=== PATIENT | female | born 1975 | race Hispanic/Latino ===

== ENCOUNTER 2019-02-11 08:28 | Day surgery (SDC) | payer OTHER ==
--- NOTE | 2019-02-11 00:25 | Consultation ---
HISTORY OF PRESENT ILLNESS: The patient is a 43-year-old woman who has a severe left flank pain. She has a 6 mm mid ureteral stone. All the options were given. She was given Flomax. Her pain is controlled. PAST MEDICAL HISTORY: No history of previous stones, which passed. MEDICATIONS: None regularly. ALLERGIES: Negative. SOCIAL HISTORY: Negative. REVIEW OF SYSTEMS: Pain is resolved. PHYSICAL EXAMINATION: GENERAL: She is awake, alert. She is in no distress. CHEST: Clear. CARDIOVASCULAR: Regular rhythm. ABDOMEN: Soft, nondistended, mild left flank pain. IMPRESSION: Left mid ureteral stone for cystoscopy stenting, possible ureteroscopy, retrograde. We wanted to try to have this passed, but she has planned a trip the entire year ago, leave on Friday. The other option if she can go and take the chance or have the stent or cancel the trip. She will see what happens over the next 24 hours. Otherwise, we will get a stent. JOB# [id number] SAGAR/EMILY
--- NOTE | 2019-02-11 09:31 | Anesthesia Day of Surgery ---
Anesthesia Day of Surgery - Day of Surgery Patient Examined: Yes Patient H&P Reviewed: Yes Patient is NPO: Yes
--- NOTE | 2019-02-11 09:31 | Anesthesia Consultation ---
Anesthesia Consult and Med Hx Date of service: 02/11/19 - Airway Anesthetic Teeth Evaluation: Good ROM Head & Neck: Adequate Mental/Hyoid Distance: Adequate Mallampati Class: Class II Intubation Access Assessment: Good - Pulmonary Exam CTA: Yes - Cardiac Exam Cardiac Exam: RRR - Pre-Operative Health Status ASA Pre-Surgery Classification: ASA2 Proposed Anesthetic Plan: General - Pulmonary Hx Asthma: No COPD: No Hx Pneumonia: No - Endocrine Hx End Stage Renal Disease: No
[2019-02-11] MEDS ORDERED: LACTATED RINGERS 1,000 ML IV SCH (10:00)
[2019-02-11] MEDS ORDERED: VERSED IV NR (10:00)
[2019-02-11] MEDS ORDERED: ANCEF/STERILE WATER 2 GM/20 ML IV NR (11:09)
[2019-02-11] MEDS ORDERED: WATER FOR IRRIG STERILE IR ONE ×2 (11:17)
[2019-02-11] MEDS ORDERED: VERSED ONE (11:37)
[2019-02-11] MEDS ORDERED: SUBLIMAZE ONE (11:37)
[2019-02-11] MEDS ORDERED: XYLOCAINE MPF 2% ONE (11:38)
[2019-02-11] MEDS ORDERED: DIPRIVAN 10 MG/ML IV ONE (11:38)
[2019-02-11] MEDS ORDERED: ZOFRAN ONE (12:08)
--- NOTE | 2019-02-11 12:09 | Post Operative Note ---
Date of procedure: 02/11/19 Pre-op diagnosis: l upper ureteral stone Post-op diagnosis: same Findings: 5 mm ureteral stone Procedure: cysto rpg stone transposition j stent Anesthesia: MUMTAZ Surgeon: GABE SOMMERS Estimated blood loss: none Pathology: none Condition: stable Disposition: PACU
--- NOTE | 2019-02-11 12:10 | Discharge Summary ---
Short Stay Discharge Plan Activity: other (no straining ) Weight Bearing Status: Full Weight Bearing Diet: low fat, low cholesterol, low salt Special Instructions: other (inc fluids ) Follow up with: SAW ZAPIEN MD [Primary Care Provider] - 7 Days GABE SOMMERS MD [Staff Physician] - 10 Days
--- NOTE | 2019-02-11 12:26 | Operative Report ---
PREOPERATIVE DIAGNOSES: Severe left flank pain, left upper ureteral stone. POSTOPERATIVE DIAGNOSES: Severe left flank pain, left upper ureteral stone. PROCEDURE: Cystoscopy, left retrograde, left stone transposition to the renal pelvis, double-J stent. SURGEON: Dr. Weir. ANESTHESIA: General. FINDINGS: This is a woman who presented to the Emergency Room with severe pain. She had an upper ureteral stone. All risks and implications discussed. DESCRIPTION OF PROCEDURE: The patient was brought to the operating room, placed on the operating table. Following induction of anesthesia, she was placed in lithotomy position, prepped and draped in usual sterile fashion. Retrograde showed the stone in the mid left ureter. Stone was transposed with the wire into the kidney. A double-J stent was left, coiled in the kidney and bladder. The patient tolerated the procedure well and brought to recovery in stable condition. She has multiple stones bilaterally. She was brought to recovery in stable condition. JOB# [id number] SAGAR/EMILY
--- NOTE | 2019-02-11 12:47 | Fluoroscopy Report ---
FLUOROSCOPY RETROGRADE UROGRAPHY HISTORY: Left ureteral stone FINDINGS: 1.01 minutes of fluoroscopy time was provided by radiology during retrograde urography by tien cash urologist. 3 fluoroscopic images of the abdomen are presented. A filling defect consistent with a stone is identified in the proximal to mid left ureter near the level of L3 with mild upstream hydron ephrosis. Subsequent images demonstrate placement of a left ureteral stent which adequately drains th e left collecting system on the final image. No images of the right renal collecting system are prese nted. Please correlate with the procedural report by Dr. Weir as needed. IMPRESSION: Left ureteral stone. Left ureteral stent placement. Signer Name: Chago Ingram Jr, MD Signed: 02/11/2019 12:42 PM Workstation Name: [id number]
[2019-02-11 13:17] VITALS: BP 113/73
--- NOTE | 2019-02-11 19:13 | Post Anesthesia Evaluation ---
- Post Anesthesia Evaluation Patient Participated: Yes Airway Patent: Yes Stable Respiratory Function: Yes Nausea/Vomiting: No Temp > 96.8F: Yes Pain Manageable: Yes Adequeate Hydration: Yes Anesthesia Complications: No Block Receding Appropriately: Not Applicable Patient on Ventilator: No
== END 2019-02-11 13:50 | disposition home or self-care (01) ==
LOC: OR 08:28
PROVIDERS: ATTEND Urology
DX: N13.2 Hydronephrosis with renal and ureteral calculous obstruction (principal); Z79.899 Other long term (current) drug therapy
CPT/HCPCS: 52332; 74420; 81025; A4217; C1726; C1758; C1769; C2617; J2250; J2405; J2704; J3010; J7120; Q9967

== ENCOUNTER 2019-03-18 06:22 | Day surgery (SDC) | payer OTHER ==
[~2019-03-18 06:22] MED LIST: IOHEXOL 300 MG/ML 50ML IV ONE; LACTATED RINGERS 1,000 ML IV SCH; MIDAZOLAM 2 MG/2 ML INJ IV NR
[2019-03-18] MEDS ORDERED: BACTERIOSTATIC SODIUM CHLORIDE 0.9% 30 ML VIAL INFILTRATI ONE (06:32)
[2019-03-18] MEDS ORDERED: FAMOTIDINE 20 MG/2 ML INJ IV NR (07:25)
--- NOTE | 2019-03-18 07:26 | Anesthesia Consultation ---
Anesthesia Consult and Med Hx Date of service: 03/18/19 - Airway Anesthetic Teeth Evaluation: Good ROM Head & Neck: Adequate Mental/Hyoid Distance: Adequate Mallampati Class: Class II Intubation Access Assessment: Probably Good - Pre-Operative Health Status ASA Pre-Surgery Classification: ASA2 Proposed Anesthetic Plan: General - Pulmonary Hx Smoking: No Hx Asthma: No COPD: No Hx Pneumonia: No Hx Sleep Apnea: No (MARILU PRE SCREEN NEGATIVE) - Cardiovascular System Hx Hypertension: No - Endocrine Hx Renal Disease: Yes (kidney, ureteral stones) Hx End Stage Renal Disease: No - Other Systems Hx Cancer: No
--- NOTE | 2019-03-18 07:26 | Anesthesia Day of Surgery ---
Anesthesia Day of Surgery - Day of Surgery Patient Examined: Yes Patient H&P Reviewed: Yes Patient is NPO: Yes
[2019-03-18] MEDS ORDERED: PROPOFOL 200 MG/20 ML VIAL IV ONE (07:50)
[2019-03-18] MEDS ORDERED: HYDROmorphone 1 MG/1 ML INJ ONE (07:50)
[2019-03-18] MEDS ORDERED: LIDOCAINE MPF (2%) 20 MG/1 ML VIAL 5 ML ONE (07:51)
[2019-03-18] MEDS ORDERED: ceFAZolin/STERILE WATER 2 GM/20 ML SYRINGE IV NR (09:22)
[2019-03-18] MEDS ORDERED: ceFAZolin/Water 2 GM/20 ML 2 GM/20 ML SYRINGE IV ONE (09:22)
[2019-03-18] MEDS ORDERED: IOHEXOL 300 MG/ML 50ML IV ONE (10:30)
[2019-03-18] MEDS ORDERED: KETOROLAC 30 MG/1 ML INJ ONE (10:46)
[2019-03-18] MEDS ORDERED: ONDANSETRON 4 MG/2 ML INJ ONE (10:46)
[2019-03-18 11:53] VITALS: BP 99/59
--- NOTE | 2019-03-18 12:05 | Short Stay Summary ---
Short Stay Documentation Date of service: 03/18/19 - History H&P: obtained from office - Allergies and Medications Current Medications: Allergies No Known Allergies Allergy (Verified 02/10/19 09:11) Home Medications Medication Instructions Recorded Confirmed Last Taken Type Ondansetron [Zofran Odt] 4 mg PO Q8HR PRN #15 tab.rapdis 02/10/19 03/18/19 02/25/19 Rx traMADol [Ultram] 50 mg PO Q6HR PRN #12 tablet 02/10/19 03/18/19 03/16/19 Rx Active Medications Cefazolin Sodium (Ancef/Sterile Water 2 Gm/20 Ml) 2 gm IV PREOP NR Stop: 03/18/19 23:59 Famotidine (Pepcid) 20 mg IV ONCE NR Stop: 03/18/19 13:00 Last Admin: 03/18/19 07:33 Dose: 20 mg Documented by: Lactated Ringer's (Lactated Ringers) 1,000 mls @ 100 mls/hr IV DIRECT ALEXEI Last Admin: 03/18/19 07:20 Dose: 100 mls/hr Documented by: Midazolam HCl (Versed) 2 mg IV PREOP NR Stop: 03/18/19 16:00 Last Admin: 03/18/19 09:38 Dose: 2 mg Documented by: - Brief post op/procedure progress note Date of procedure: 03/18/19 Pre-op diagnosis: left uret strone 6mm w/ stent Post-op diagnosis: same Procedure: cysto, lei rpg, left stent removla and placemnt of 6x26; left URS laser and stone extraction Anesthesia: GETA Findings: left uret stone Surgeon: MAURICIO KUMAR Estimated blood loss: minimal Pathology: list (stone) Specimen disposition: to lab Condition: stable - Hospital course Hospital course: or pacu home - Disposition Condition at discharge: Good Disposition: DC-01 TO HOME OR SELFCARE Short Stay Discharge Plan Activity: advance as tolerated Diet: advance as tolerated Follow up with: MAURICIO KUMAR MD [Staff Physician] - 7 Days
--- NOTE | 2019-03-18 13:41 | Post Anesthesia Evaluation ---
- Post Anesthesia Evaluation Patient Participated: Yes Airway Patent: Yes Stable Respiratory Function: Yes Nausea/Vomiting: No Temp > 96.8F: Yes Pain Manageable: Yes Adequeate Hydration: Yes Anesthesia Complications: No
--- NOTE | 2019-03-18 14:14 | Fluoroscopy Report ---
INTRAOPERATIVE FLUOROSCOPY: ABDOMEN INDICATION: LT URETERAL STONE. TECHNIQUE: Intraoperative spot images were obtained during the procedure. FINDINGS: Limited fluoroscopic imaging of the abdomen demonstrates satisfactory positioning of a previously moises mya left ureteral stent. A stone is seen along the proximal left ureter. That stone was subsequently freed and a new ureteral stent was placed on the left. The opacified right renal collecting system an d ureter appear unremarkable. Please see the procedure report for further details. Fluoroscopy Time: 1 minute, 34 seconds. Fluoroscopy Images: 7. Signer Name: Santi Onofre MD Signed: 03/18/2019 2:09 PM Workstation Name: [id number]
--- NOTE | 2019-04-06 16:08 | Operative Report ---
UROLOGY OPERATIVE NOTE PREOPERATIVE DIAGNOSIS: Left ureteral 6 mm stone with stent. POSTOPERATIVE DIAGNOSIS: Left ureteral 6 mm stone with stent. PROCEDURE: Cystoscopy, bilateral RPG, left stent removal and placement of a 6 x 26 double-J stent, left ureteroscopy, laser fragmentation, stone extraction. FINDINGS: Left ureteral stone. SURGEON: Dr. Brayan Gallardo. ESTIMATED BLOOD LOSS: Minimal. PATHOLOGY: Stone. SPECIMENS: ____. CONDITION: Stable. CLINICAL INDICATIONS: The patient was counseled RCBA, antibiotics, SCDs. The patient with ureteral stone, counseled on options and desired ureteroscopy, antibiotics, SCDs. DESCRIPTION OF PROCEDURE: The patient was transferred to OR suite in supine position, anesthesia, dorsal lithotomy, prepped and draped in standard fashion. A 22-Beninese scope was passed. Pancystoscopy 30 and 70 degree lens, no tumors or lesions. Right retrograde pyelogram was within normal limits. Left UO cannulated, 8-Beninese cone-tipped catheter, contrast injected, there was mild hydroureter. A 0.035 ____ Glidewire passed in the ureter up to the renal pelvis. Next, a rigid ureteroscope was assembled, we cannulated to the left ureter, was passed up to the stone, stone identified, was fragmented with the holmium laser into smaller pieces with some pieces being removed and dropped in the bladder and a few of the pieces were sent later for pathology. At this point, the scope was passed ____. There were no proximal residual stones in any other location. At this point, scope was slowly withdrawn. Wire backloaded on the cystoscope. A 6 x 26 double-J stent was passed over the wire under direct and fluoroscopic visualization. When the wire and string was removed, nice proximal J, nice distal J within the bladder, bladder drained. The patient awakened and transferred to PACU in good and stable condition. JOB# [id number] ATS/NTS
== END 2019-03-18 06:23 | disposition home or self-care (01) ==
LOC: OR 06:22
PROVIDERS: ATTEND Urology
DX: N20.0 Calculus of kidney (principal); Z79.899 Other long term (current) drug therapy; Z87.440 Personal history of urinary (tract) infections
CPT/HCPCS: 36415; 52356; 74420; 81025; 82365; 82962; 88300; C1758; C1769; C2617; J0690; J1170; J1885; J2250; J2405; J2704; J7120; Q9967; 88302